=== PATIENT | female | born 1995 | race Caucasian/White ===

== ENCOUNTER → 2017-08-08 | Outpatient (REF) | payer OTHER | LOC: M LAB REF 16:25 | PROVIDERS: ATTEND Physician Assistant | DX: J02.9 Acute pharyngitis, unspecified (principal) ==

== ENCOUNTER → 2020-10-29 | Outpatient (CLI) | payer OTHER ==
--- NOTE | 2020-10-29 08:50 | REP ---
INDICATION: CONTUSION. COMPARISON: Comparison right shoulder radiographs are from June 12, 2013.. TECHNIQUE: AP and tube angled views of the right clavicle are obtained. FINDINGS: the acromioclavicular joint and glenohumeral joints are normally aligned and unchanged from the 2013 prior study. Bony clavicle is intact. No fracture is seen. IMPRESSION: No fracture or subluxation noted. <Electronically signed by Leodan Briones > 10/29/20 [id number]
--- NOTE | 2020-10-29 08:51 | REP ---
INDICATION: CONTUSION. COMPARISON: None. TECHNIQUE: AP and lateral views of the right humerus. FINDINGS: AP and lateral views of the right humerus demonstrate normal bones, joints, and soft tissues. No fracture or subluxation is seen. No opaque foreign body noted. IMPRESSION: Negative right humerus series. <Electronically signed by Leodan Briones > 10/29/20 [id number]
--- NOTE | 2020-10-29 08:51 | REP ---
INDICATION: CONTUSION. COMPARISON: Comparison radiographs are from June 12, 2013.. TECHNIQUE: Three views of the right shoulder are presented. FINDINGS: The right glenohumeral and acromioclavicular joints are normally aligned. No fracture or subluxation is seen. Periarticular soft tissues are unremarkable. IMPRESSION: Negative right shoulder radiographs. <Electronically signed by Leodan Briones > 10/29/20 0815
== END ==
LOC: M WUC 08:19
PROVIDERS: ATTEND Physician Assistant
DX: S40.011A Contusion of right shoulder, initial encounter (principal); S40.021A Contusion of right upper arm, initial encounter; X58.XXXA Exposure to other specified factors, initial encounter; Y92.89 Other specified places as the place of occurrence of the external cause; Y93.89 Activity, other specified; Y99.8 Other external cause status